=== PATIENT | male | born 1930 | race Caucasian/White ===

== ENCOUNTER 2018-06-18 17:44 | Observation (INO) | payer MEDICARE, OTHER ==
[2018-06-18] MEDS ORDERED: ASPIRIN 81 MG PO STA (18:09)
[2018-06-18] MEDS ORDERED: NITROGLYCERIN OINT 1 INCH/GM PACKET TOPICAL STA (18:09)
[2018-06-18] MEDS ORDERED: NITROGLYCERIN SL TABS 0.4 MG TAB SUBLINGUAL STA (18:09)
--- NOTE | 2018-06-18 18:23 | ED ---
General Adult HPI - General Chief complaint: Chest Pain Stated complaint: chest pain Time Seen by Provider: 06/18/18 17:45 Source: patient, RN notes reviewed Mode of arrival: wheelchair Limitations: no limitations - History of Present Illness Initial comments: This is an 88-year-old male who presents to the emergency department complaining of chest pain which started 3 days ago but he states it's intermittent. Patient states the pain sometimes radiates up into his neck and get quite severe. Patient states there is no associated symptoms. Patient denies any shortness of breath or any diaphoresis or nausea. Patient denies lightheadedness dizziness or near syncopal episode. Patient denies any recent fever chills or cough. Patient denies any abdominal pain patient denies any nausea or vomiting. Patient denies any recent injury or trauma. - Related Data Home Medications Medication Instructions Recorded Confirmed Albuterol Inhaler [Ventolin Hfa 2 puff INHALATION RT-Q6H PRN 06/18/18 06/18/18 Inhaler] Albuterol Nebulized [Ventolin 2.5 mg INHALATION RT-QID PRN 06/18/18 06/18/18 Nebulized] Aspirin EC [Ecotrin Low Dose] 81 mg PO DAILY 06/18/18 06/18/18 Atorvastatin [Lipitor] 20 mg PO HS 06/18/18 06/18/18 Carvedilol [Coreg] 6.25 mg PO BID 06/18/18 06/18/18 Econazole 1% Cream [Spectazole] 1 applic TOPICAL DAILY PRN 06/18/18 06/18/18 Furosemide [Lasix] 40 mg PO DAILY PRN 06/18/18 06/18/18 Glycopyrrolate/Formoterol Fum 2 puff INHALATION RT-BID 06/18/18 06/18/18 [Bevespi Aerosphere Inhaler] Ibuprofen [Motrin Ib] 200 - 400 mg PO Q6H PRN 06/18/18 06/18/18 Lisinopril [Zestril] 2.5 mg PO DAILY 06/18/18 06/18/18 Potassium Chloride ER [K-Dur 20] 20 meq PO DAILY 06/18/18 06/18/18 Rivaroxaban [Xarelto] 20 mg PO DAILY 06/18/18 06/18/18 Allergies Allergy/AdvReac Type Severity Reaction Status Date / Time No Known Allergies Allergy Verified 06/18/18 18:24 Review of Systems ROS Statement: Those systems with pertinent positive or pertinent negative responses have been documented in the HPI. ROS Other: All systems not noted in ROS Statement are negative. Past Medical History Past Medical History: Coronary Artery Disease (CAD), Hyperlipidemia Additional Past Medical History / Comment(s): left leg swelling History of Any Multi-Drug Resistant Organisms: None Reported Past Surgical History: Heart Catheterization Additional Past Surgical History / Comment(s): left leg bypass Past Psychological History: No Psychological Hx Reported Smoking Status: Former smoker Past Alcohol Use History: Rare Past Drug Use History: None Reported General Exam - General Exam Comments Initial Comments: GENERAL: Patient is well-developed and well-nourished. Patient is nontoxic and well- hydrated and is in mild distress. ENT: Neck is soft and supple. No significant lymphadenopathy is noted. Oropharynx is clear. Moist mucous membranes. Neck has full range of motion without eliciting any pain. EYES: The sclera were anicteric and conjunctiva were pink and moist. Extraocular movements were intact and pupils were equal round and reactive to light. Eyelids were unremarkable. PULMONARY: Unlabored respirations. Good breath sounds bilaterally. No audible rales rhonchi or wheezing was noted. CARDIOVASCULAR: There is a regular rate and rhythm without any murmurs gallops or rubs. ABDOMEN: Soft and nontender with normal bowel sounds. No palpable organomegaly was noted. There is no palpable pulsatile mass. SKIN: Skin is clear with no lesions or rashes and otherwise unremarkable. NEUROLOGIC: Patient is alert and oriented x3. Cranial nerves II through XII are grossly intact. Motor and sensory are also intact. Normal speech, volume and content. Symmetrical smile. MUSCULOSKELETAL: Normal extremities with adequate strength and full range of motion. No lower extremity swelling or edema. No calf tenderness. LYMPHATICS: No significant lymphadenopathy is noted PSYCHIATRIC: Normal psychiatric evaluation. Limitations: no limitations Course Vital Signs 06/18/18 06/18/18 06/18/18 17:45 18:14 19:01 Temperature 97.5 F L Pulse Rate 74 74 70 Respiratory 16 16 16 Rate Blood Pressure 162/73 190/90 184/84 O2 Sat by Pulse 99 99 99 Oximetry Medical Decision Making - Medical Decision Making EKG shows sinus rhythm at [address] interval 262 QRS is 152 QT interval 434 QTC is 461. Patient has a left bundle branch block. Chest x-ray shows no acute abnormality. I spoke with Dr. Goldstein agreed to admit the patient admitted the patient wrote admitting orders. I will back into reevaluate the patient and given the results the tests he told me that the nitroglycerin and Nitropaste seem to taken away his pain he hasn't had any pain since that time. - Lab Data Result diagrams: 06/18/18 18:04 06/18/18 18:04 Lab Results 06/18/18 06/18/18 06/18/18 Range/Units 18:04 18:04 18:04 WBC 5.1 (3.8-10.6) k/uL RBC 3.63 L (4.30-5.90) m/uL Hgb 10.5 L (13.0-17.5) gm/dL Hct 33.3 L (39.0-53.0) % MCV 91.8 (80.0-100.0) fL MCH 28.9 (25.0-35.0) pg MCHC 31.5 (31.0-37.0) g/dL RDW 15.2 (11.5-15.5) % Plt Count 185 (150-450) k/uL Neutrophils % 62 % Lymphocytes % 23 % Monocytes % 6 % Eosinophils % 4 % Basophils % 1 % Neutrophils # 3.1 (1.3-7.7) k/uL Lymphocytes # 1.2 (1.0-4.8) k/uL Monocytes # 0.3 (0-1.0) k/uL Eosinophils # 0.2 (0-0.7) k/uL Basophils # 0.0 (0-0.2) k/uL PT 11.0 (9.0-12.0) sec INR 1.0 (<1.2) APTT 22.4 (22.0-30.0) sec Sodium 139 (137-145) mmol/L Potassium 4.6 (3.5-5.1) mmol/L Chloride 109 H (98-107) mmol/L Carbon Dioxide 24 (22-30) mmol/L Anion Gap 6 mmol/L BUN 26 H (9-20) mg/dL Creatinine 1.50 H (0.66-1.25) mg/dL Est GFR (CKD-EPI)AfAm 48 (>60 ml/min/1.73 sqM) Est GFR (CKD-EPI)NonAf 41 (>60 ml/min/1.73 sqM) Glucose 89 (74-99) mg/dL Calcium 9.4 (8.4-10.2) mg/dL Magnesium 2.1 (1.6-2.3) mg/dL Total Bilirubin 0.6 (0.2-1.3) mg/dL AST 25 (17-59) U/L ALT 45 (21-72) U/L Alkaline Phosphatase 52 (38-126) U/L Troponin I (0.000-0.034) ng/mL Total Protein 6.4 (6.3-8.2) g/dL Albumin 3.9 (3.5-5.0) g/dL / Range/Units 18:04 WBC (3.8-10.6) k/uL RBC (4.30-5.90) m/uL Hgb (13.0-17.5) gm/dL Hct (39.0-53.0) % MCV (80.0-100.0) fL MCH (25.0-35.0) pg MCHC (31.0-37.0) g/dL RDW (11.5-15.5) % Plt Count (150-450) k/uL Neutrophils % % Lymphocytes % % Monocytes % % Eosinophils % % Basophils % % Neutrophils # (1.3-7.7) k/uL Lymphocytes # (1.0-4.8) k/uL Monocytes # (0-1.0) k/uL Eosinophils # (0-0.7) k/uL Basophils # (0-0.2) k/uL PT (9.0-12.0) sec INR (<1.2) APTT (22.0-30.0) sec Sodium (137-145) mmol/L Potassium (3.5-5.1) mmol/L Chloride (98-107) mmol/L Carbon Dioxide (22-30) mmol/L Anion Gap mmol/L BUN (9-20) mg/dL Creatinine (0.66-1.25) mg/dL Est GFR (CKD-EPI)AfAm (>60 ml/min/1.73 sqM) Est GFR (CKD-EPI)NonAf (>60 ml/min/1.73 sqM) Glucose (74-99) mg/dL Calcium (8.4-10.2) mg/dL Magnesium (1.6-2.3) mg/dL Total Bilirubin (0.2-1.3) mg/dL AST (17-59) U/L ALT (21-72) U/L Alkaline Phosphatase (38-126) U/L Troponin I 0.019 (0.000-0.034) ng/mL Total Protein (6.3-8.2) g/dL Albumin (3.5-5.0) g/dL Disposition Clinical Impression: Unstable angina pectoris Disposition: ADMITTED IP TO THIS [facility] Time of Disposition: 19:51
[2018-06-18 18:25] LABS: Basophils % (A) 1 %; Eosinophils # (A) 0.2 k/uL (0-0.7); Eosinophils % (A) 4 %; HCT 33.3 % (39.0-53.0); HGB 10.5 gm/dL (13.0-17.5); Lymphocytes # (A) 1.2 k/uL (1.0-4.8); Lymphocytes % (A) 23 %; MCH 28.9 pg (25.0-35.0); MCHC 31.5 g/dL (31.0-37.0); MCV 91.8 fL (80.0-100.0); Mean Platelet Volume 7.3; Monocytes # (A) 0.3 k/uL (0-1.0); Monocytes % (A) 6 %; Neutrophils # (A) 3.1 k/uL (1.3-7.7); Neutrophils % (A) 62 %; Platelet Count 185 k/uL (150-450); RBC 3.63 m/uL (4.30-5.90); RDW 15.2 % (11.5-15.5); WBC 5.1 k/uL (3.8-10.6)
[2018-06-18 18:34] LABS: Albumin 3.9 g/dL (3.5-5.0); Calcium 9.4 mg/dL (8.4-10.2); Magnesium 2.1 mg/dL (1.6-2.3); Potassium 4.6 mmol/L (3.5-5.1); Total Bilirubin 0.6 mg/dL (0.2-1.3); Total Protein 6.4 g/dL (6.3-8.2)
[2018-06-18 18:37] LABS: Partial Thromboplastin Time 22.4 sec (22.0-30.0)
--- NOTE | 2018-06-18 19:46 | XR ---
EXAMINATION TYPE: XR chest 2V DATE OF EXAM: 06/18/2018 COMPARISON: NONE HISTORY: Chest pain TECHNIQUE: Frontal and lateral views of the chest are obtained. FINDINGS: Heart and mediastinum are normal. Lungs are clear. Costophrenic angles are clear. There ar e chest leads. Bony thorax is intact. IMPRESSION: Normal chest
[2018-06-18] MEDS ORDERED: HEPARIN SODIUM,PORCINE 5,000 UNIT/ML 1 ML VIAL IV ONE (19:51)
[2018-06-18] MEDS ORDERED: NITROGLYCERIN SL TABS 0.4 MG TAB SUBLINGUAL PRN (19:51)
[2018-06-18] MEDS ORDERED: HEPARIN SOD,PORK IN 0.45% NACL 25,000 UNIT in 0.45% NACL 1 250ML.BAG IV SCH (20:00)
[2018-06-18] MEDS ORDERED: CLOTRIMAZOLE 1% CREAM 15 GM TUBE TOPICAL PRN (21:23)
[2018-06-18] MEDS ORDERED: ALBUTEROL NEBULIZED 2.5 MG/3 ML INHALATION PRN ×2 (21:23)
[2018-06-18] MEDS ORDERED: FUROSEMIDE 40 MG TAB PO PRN (21:23)
[2018-06-18] MEDS: CARVEDILOL 6.25 MG TAB PO SCH (22:07)
[2018-06-18] MEDS: NITROGLYCERIN OINT 1 INCH/GM PACKET TOPICAL SCH (23:56)
[2018-06-19] MEDS: NITROGLYCERIN OINT 1 INCH/GM PACKET TOPICAL SCH (05:04)
[2018-06-19 07:02] LABS: Cholesterol 119 mg/dL (<200); HDL Cholesterol 60 mg/dL (40-60); LDL Cholesterol,Calculated 44 mg/dL (0-99); Triglycerides 74 mg/dL (<150)
[2018-06-19] MEDS: IPRATROPIUM 0.5 MG/2.5 ML NEBU INHALATION SCH ×4 (07:43→18:20)
[2018-06-19] MEDS: FORMOTEROL FUMARATE 20 MCG/2 ML NEBU INHALATION SCH ×2 (07:43→18:20)
[2018-06-19 08:31] VITALS: RESP 18
[2018-06-19] MEDS ORDERED: RIVAROXABAN 20 MG TAB PO SCH (09:00)
[2018-06-19] MEDS ORDERED: LISINOPRIL 2.5 MG TAB PO SCH (09:00)
[2018-06-19] MEDS ORDERED: ASPIRIN 81 MG PO SCH (09:00)
[2018-06-19] MEDS ORDERED: ASPIRIN 325 MG TAB PO SCH (09:00)
[2018-06-19] MEDS: CARVEDILOL 6.25 MG TAB PO SCH (12:29)
--- NOTE | 2018-06-19 13:11 | ECHOF ---
Referral Reason:cp MEASUREMENTS -------- HEIGHT: 180.3 cm WEIGHT: 80.7 kg BP: 188/73 RVIDd: 3.4 cm (< 3.3) IVSd: 1.4 cm (0.6 - 1.1) LVIDd: 4.0 cm (3.9 - 5.3) LVPWd: 1.4 cm (0.6 - 1.1) IVSs: 1.9 cm LVIDs: 2.9 cm LVPWs: 1.8 cm LA Diam: 3.9 cm (2.7 - 3.8) LAESV Index (A-L): 29.14 ml/m Ao Diam: 2.9 cm (2.0 - 3.7) AV Cusp: 2.2 cm (1.5 - 2.6) MV EXCURSION: 15.293 mm (> 18.000) MV EF SLOPE: 129 mm/s (70 - 150) EPSS: 0.6 cm MV E Flo: 1.10 m/s MV DecT: 110 ms MV A Flo: 0.57 m/s MV E/A Ratio: 1.91 AR PHT: 532 ms RAP: 5.00 mmHg RVSP: 34.51 mmHg FINDINGS -------- Sinus rhythm. This was a technically good study. The left ventricular size is normal. There is moderate concentric left ventricular hypertrophy. O verall left ventricular systolic function is normal with, an EF between 55 - 60 %. The right ventricle is mildly enlarged. LA is midly dilated 29-33ml/m2. The right atrium is normal in size. There is mild aortic valve sclerosis. There is mild aortic regurgitation. Mild mitral regurgitation is present. Mild tricuspid regurgitation present. There is mild pulmonary hypertension. The right ventricular systolic pressure, as measured by Doppler, is 34.51mmHg. Trace/mild (physiologic) pulmonic regurgitation. The aortic root size is normal. Normal inferior vena cava with normal inspiratory collapse consistent with estimated right atrial pre ssure of 5 mmHg. There is no pericardial effusion. CONCLUSIONS -------- 1. Sinus rhythm. 2. This was a technically good study. 3. The left ventricular size is normal. 4. There is moderate concentric left ventricular hypertrophy. 5. Overall left ventricular systolic function is normal with, an EF between 55 - 60 %. 6. The right ventricle is mildly enlarged. 7. LA is midly dilated 29-33ml/m2. 8. The right atrium is normal in size. 9. There is mild aortic valve sclerosis. 10. There is mild aortic regurgitation. 11. Mild mitral regurgitation is present. 12. Mild tricuspid regurgitation present. 13. There is mild pulmonary hypertension. 14. The right ventricular systolic pressure, as measured by Doppler, is 34.51mmHg. 15. Trace/mild (physiologic) pulmonic regurgitation. 16. The aortic root size is normal. 17. Normal inferior vena cava with normal inspiratory collapse consistent with estimated right atrial pressure of 5 mmHg. 18. There is no pericardial effusion. [employer]: Carmen Joe RDCS
--- NOTE | 2018-06-19 14:31 | P.CRDCN ---
History of Present Illness History of present illness: This is a pleasant 88-year-old male past medical history significant for dyslipidemia, coronary artery disease, peripheral vascular disease, hypertension, paroxysmal atrial fibrillation on long-term anticoagulation and COPD. He states he was a long-time smoker but quit approximately 15 years ago however recently restarted smoking and again has quit 2 months ago. He follows with Dr. Ramirez for cardiology out of [facility]. We have been asked to see him in consultation for chest pain. He states approximately one week ago while he was in the shower he turns too quickly and felt a pull in his left side in his rib torso region and immediately had significant cramping on that side of his body. Since that time he has had a vague discomfort at the base of his neck. This discomfort is worse with movement of his torso or neck and is relieved with intense pressure-like pressing on the area with his hand or applying heat pack to the area. He denies any radiation through to the chest. He denies associated shortness of breath, dizziness, nausea, vomiting or diaphor esis. He states he underwent coronary artery balloon angioplasty 2 years ago at [facility]. Otherwise he denies any history of stent placement or bypass surgery. EKG reveals left bundle branch block with first-degree AV block. There is no old for comparison. Chest x-ray is negative for an acute cardiopulmonary process. Laboratory data reviewed, WBC 5.1, 1110.5, platelets 185, sodium 139, potassium 4.6, creatinine 1.5, magnesium 2.1, cardiac enzymes negative 3, LDL 44 and HDL 60. Current cardiac medications include aspirin 81 mg daily, atorvastatin 20 mg daily, carvedilol 6.25 mg twice a day, Lasix 40 mg daily as needed, lisinopril 20 mg daily and Xarelto 20 mg daily. At the time of my exam: CONSTITUTIONAL: Denies fever. Denies chills. EYES: Denies blurred vision. Denies vision changes. Denies eye pain. EARS, NOSE, MOUTH & THROAT: Denies headache. Denies sore throat. Denies ear pain. CARDIOVASCULAR: Denies chest pain. Denies shortness of breath. Denies orthopnea. Denies PND. Denies palpitations. RESPIRATORY: Denies cough. GASTROINTESTINAL: Denies abdominal pain. Denies diarrhea. Denies constipation. Denies nausea. Denies vomiting. MUSCULOSKELETAL: Complains of intermittent discomfort at the base of his neck posteriorly. INTEGUMENTARY: Denies pruitis. Denies rash. NEUROLOGIC: Denies numbness. Denies tingling. Denies weakness. PSYCHIATRIC: Denies anxiety. Denies depression. ENDOCRINE: Denies fatigue. Denies weight change. Denies polydipsia. Denies polyurina. GENITOURINARY: Denies burning, hematuria or urgency with micturation. HEMATOLOGIC: Denies history of anemia. Denies bleeding. Blood pressure 182/72 heart rate 74 afebrile maintaining oxygen saturation on room air GENERAL: This is a 88-year-old male in no apparent distress at the time of my examination. HEENT: Head is atraumatic, normocephalic. Pupils are equal, round. Sclerae anicteric. Conjunctivae are clear. Mucous membranes of the mouth are moist. Neck is supple. There is no jugular venous distention. No carotid bruit is heard. LUNGS: Clear to auscultation no wheezes, rales or rhonchi. No chest wall tenderness is noted on palpation or with deep breathing. HEART: Regular rate and rhythm with systolic ejection murmur at the left sternal border, no rubs or gallops. S1 and S2 heard. Distant heart sounds. ABDOMEN: Soft, nontender. Bowel sounds are heard. No organomegaly noted. EXTREMITIES: No evidence of peripheral edema and no calf tenderness noted. VASCULAR: Radial and dorsalis pedis pulses palpated, no evidence of clubbing. NEUROLOGIC: Patient is awake, alert and oriented x3. ASSESSMENT Musculoskeletal neck strain History of coronary artery disease status post balloon angioplasty in 2017 exact details unavailable. Hypertension Dyslipidemia Peripheral vascular disease Paroxysmal atrial fibrillation on long-term anticoagulation COPD PLAN An acute coronary event has been ruled out. Obtain 2-D echocardiogram and Doppler study to assess cardiac structure and function. Recommend anti-inflammatory pain relief as needed. 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 Thank you kindly for this consultation. Nurse Practitioner note has been reviewed, I agree with a documented findings and plan of care. Patient was seen and examined. Past Medical History Past Medical History: Coronary Artery Disease (CAD), Hyperlipidemia Additional Past Medical History / Comment(s): left leg swelling History of Any Multi-Drug Resistant Organisms: None Reported Past Surgical History: Heart Catheterization, Hernia Repair Additional Past Surgical History / Comment(s): left leg bypass, right and left hernia Past Anesthesia/Blood Transfusion Reactions: No Reported Reaction Smoking Status: Former smoker Medications and Allergies Home Medications Medication Instructions Recorded Confirmed Type Albuterol Inhaler [Ventolin Hfa 2 puff INHALATION RT-Q6H PRN 06/18/18 06/18/18 History Inhaler] Albuterol Nebulized [Ventolin 2.5 mg INHALATION RT-QID PRN 06/18/18 06/18/18 History Nebulized] Aspirin EC [Ecotrin Low Dose] 81 mg PO DAILY 06/18/18 06/18/18 History Atorvastatin [Lipitor] 20 mg PO HS 06/18/18 06/18/18 History Carvedilol [Coreg] 6.25 mg PO BID 06/18/18 06/18/18 History Econazole 1% Cream [Spectazole] 1 applic TOPICAL DAILY PRN 06/18/18 06/18/18 History Furosemide [Lasix] 40 mg PO DAILY PRN 06/18/18 06/18/18 History Glycopyrrolate/Formoterol Fum 2 puff INHALATION RT-BID 06/18/18 06/18/18 History [Bevespi Aerosphere Inhaler] Ibuprofen [Motrin Ib] 200 - 400 mg PO Q6H PRN 06/18/18 06/18/18 History Lisinopril [Zestril] 2.5 mg PO DAILY 06/18/18 06/18/18 History Potassium Chloride ER [K-Dur 20] 20 meq PO DAILY 06/18/18 06/18/18 History Rivaroxaban [Xarelto] 20 mg PO DAILY 06/18/18 06/18/18 History Allergies Allergy/AdvReac Type Severity Reaction Status Date / Time No Known Allergies Allergy Verified 06/18/18 21:22 Physical Exam Vitals: Vital Signs Temp Pulse Pulse Resp BP BP Pulse Ox 06/19/18 07:52 72 06/19/18 07:51 72 06/19/18 07:44 72 06/19/18 03:53 97.8 F 74 16 179/79 96 06/19/18 03:51 16 06/18/18 23:38 98.2 F 63 16 160/68 94 L 06/18/18 23:26 16 06/18/18 21:27 97.7 F 79 16 177/66 98 06/18/18 20:30 71 16 197/91 99 06/18/18 20:00 71 22 194/89 98 06/18/18 19:30 50 L 13 191/86 100 06/18/18 19:01 70 16 184/84 99 06/18/18 18:14 74 16 190/90 99 06/18/18 17:45 97.5 F L 74 16 162/73 99 Intake and Output 06/18/18 06/19/18 06/19/18 22:59 06:59 14:59 Other: # Voids 1 Weight 80.739 kg Results 06/18/18 18:04 06/18/18 18:04 Cardiac Enzymes 06/18/18 06/18/18 06/18/18 Range/Units 18:04 18:04 23:54 AST 25 (17-59) U/L Troponin I 0.019 0.020 (0.000-0.034) ng/mL 06/19/18 Range/Units 05:44 AST (17-59) U/L Troponin I 0.019 (0.000-0.034) ng/mL Coagulation 06/18/18 Range/Units 18:04 PT 11.0 (9.0-12.0) sec APTT 22.4 (22.0-30.0) sec Lipids 06/19/18 Range/Units 05:44 Triglycerides 74 (<150) mg/dL Cholesterol 119 (<200) mg/dL HDL Cholesterol 60 (40-60) mg/dL CBC 06/18/18 Range/Units 18:04 WBC 5.1 (3.8-10.6) k/uL RBC 3.63 L (4.30-5.90) m/uL Hgb 10.5 L (13.0-17.5) gm/dL Hct 33.3 L (39.0-53.0) % Plt Count 185 (150-450) k/uL Comprehensive Metabolic Panel 06/18/18 Range/Units 18:04 Sodium 139 (137-145) mmol/L Potassium 4.6 (3.5-5.1) mmol/L Chloride 109 H (98-107) mmol/L Carbon Dioxide 24 (22-30) mmol/L BUN 26 H (9-20) mg/dL Creatinine 1.50 H (0.66-1.25) mg/dL Glucose 89 (74-99) mg/dL Calcium 9.4 (8.4-10.2) mg/dL AST 25 (17-59) U/L ALT 45 (21-72) U/L Alkaline Phosphatase 52 (38-126) U/L Total Protein 6.4 (6.3-8.2) g/dL Albumin 3.9 (3.5-5.0) g/dL Current Medications Generic Name Dose Route Start Last Admin Trade Name Freq PRN Reason Stop Dose Admin Albuterol Sulfate 2.5 mg 06/18/18 21:23 Ventolin Nebulized INHALATION RT-QID PRN Shortness Of Breath Aspirin 81 mg 06/19/18 09:00 Aspirin PO DAILY [facility] Atorvastatin Calcium 20 mg 06/19/18 21:00 Lipitor PO HS [facility] Carvedilol 6.25 mg 06/18/18 21:30 06/18/18 22:07 Coreg PO 6.25 mg AC-BID [facility] Administration Clotrimazole 1 applic 06/18/18 21:23 Lotrimin Cream TOPICAL DAILY PRN Skin Irritation Formoterol Fumarate 20 mcg 06/19/18 08:00 06/19/18 07:43 Perforomist INHALATION 20 mcg RT-BID [facility] Administration Furosemide 40 mg 06/18/18 21:23 Lasix PO DAILY PRN Edema Ipratropium [place] 0.5 mg 06/19/18 08:00 06/19/18 07:43 Atrovent Nebulized INHALATION 0.5 mg RT-QID [facility] Administration Lisinopril 2.5 mg 06/19/18 09:00 Zestril PO DAILY [facility] Nitroglycerin 1 inch 06/19/18 00:00 06/19/18 05:04 Nitro-Bid Oint TOPICAL Not Given Q6HR [facility] Nitroglycerin 0.4 mg 06/18/18 19:51 Nitrostat SUBLINGUAL Q5M PRN Chest Pain Rivaroxaban 20 mg 06/19/18 09:00 Xarelto PO DAILY [facility] Intake and Output 06/18/18 06/19/18 06/19/18 22:59 06:59 14:59 Other: # Voids 1 Weight 80.739 kg 06/18/18 18:04 06/18/18 18:04
[2018-06-19 16:08] VITALS: BP 173/73; PULSE 59; TEMP 97.7
--- NOTE | 2018-06-19 16:27 | XR ---
EXAMINATION TYPE: XR cervical spine comp DATE OF EXAM: 06/19/2018 CLINICAL HISTORY: pain COMPARISON: NONE TECHNIQUE: Frontal, lateral, oblique, swimmers, and open mouth view of the cervical spine are obtaine d. FINDINGS: The cervical spine is visualized in its entirety from C1 thru the top of T1 level. It is s atisfactory in alignment without evidence of acute fracture or dislocation. The pre-vertebral soft t issue appears within normal limits. Severe multilevel degenerative disc space narrowing and spondylos is from C3-4 through C6-7. The C1-C2 articulation is unremarkable on the open mouth view. C5-6 and C6 -7 foraminal encroachment bilaterally. IMPRESSION: No acute fracture or dislocation is seen in the cervical spine.ICD 10 NO FRACTURE, INITI AL EVALUATION
--- NOTE | 2018-06-19 16:28 | XR ---
EXAMINATION TYPE: XR thoracic spine 2V DATE OF EXAM: 06/19/2018 CLINICAL HISTORY: pain TECHNIQUE: Frontal, lateral, and swimmer's view of thoracic spine are obtained. COMPARISON: None. FINDINGS: Thoracic spine show satisfactory alignment without evidence of acute fracture or dislocatio n. Vertebral body heights are preserved. Mild degenerative disc space narrowing is noted. Visualiz ed ribs are unremarkable. IMPRESSION: No acute fracture or dislocation is seen in the thoracic spine. ICD 10 NO FRACTURE, INIT IAL EVALUATION
[2018-06-19] MEDS ORDERED: predniSONE 20 MG TAB PO STA (17:17)
--- NOTE | 2018-06-19 20:21 | DS ---
DISCHARGE SUMMARY HISTORY AND PHYSICAL AND DISCHARGE SUMMARY: DATE OF ADMISSION: 06/18/2018 DATE OF DISCHARGE: 06/19/2018 PRESENTING COMPLAINT: Acute neck pain. HISTORY OF PRESENTING COMPLAINT: This is a very pleasant 88-year-old patient who follows with Dr. Nayak out of [place]. Chronic stable medical conditions include coronary artery disease with angioplasty done by Dr. Ramirez out of [facility], hyperlipidemia, peripheral artery disease and osteoarthritis. The patient had a nuclear stress test close to a year ago. The patient for the last 3 days up to about 4 times a day was getting shooting severe pain in the upper part of the chest posteriorly just below the neckline. The pain was severe and shooting and sometimes radiating to the side. At one time at least he was able to move his arm around and get some comfort. He also noticed some fluttering sensation in the chest in one of these episodes and decided to come in to rule out a cardiac cause. Otherwise, the pain was localized to the back. There was no shortness of breath, no dizziness, no lightheadedness, not related to activity. He noted that it happened when he was sitting in a chair, going to move forward with his neck when he got this pain. But he was admitted through the ER to make sure there was no cardiac component to this presentation. REVIEW OF SYSTEMS: CONSTITUTIONAL: None. HEENT: None. RESPIRATORY: None. CARDIOVASCULAR: As above. GASTROINTESTINAL: None. GENITOURINARY: None. MUSCULOSKELETAL: Arthritic pain in different joints. DERMATOLOGICAL: None. HEMATOLOGIC: None. LYMPHATICS: None. PSYCHIATRY none. NEUROLOGICAL: None. MUSCULOSKELETAL: As above. PAST MEDICAL HISTORY: 1. Coronary artery disease with angioplasty. 2. Hyperlipidemia. 3. Peripheral artery disease. 4. Osteoarthritis. PAST SURGICAL HISTORY: 1. Cardiac catheterization with angioplasty. 2. Hernia repair. 3. Left leg bypass. 4. Right and left hernia. SOCIAL HISTORY: Patient did smoke in the past. Alcohol rarely. Retired. FAMILY HISTORY: Reviewed; noncontributory to presentation. HOME MEDICATIONS: 1. Ventolin 2.5 q.i.d. p.r.n. 2. Xarelto 20 mg daily. 3. Potassium 20 mEq a day. 4. Zestril 2.5 p.o. daily. 5. Motrin 200 to 400 mg q.6 p.r.n. 6. Bevespi Aerosphere 2 puffs b.i.d. 7. Lasix 40 mg p.r.n. 8. Spectazole 1 application topically daily p.r.n. 9. Coreg 6.25 b.i.d. 10.Lipitor 20 mg at bedtime. 11.Aspirin 81 mg p.o. daily. 12.Ventolin HFA 2 puffs q.6 p.r.n. ALLERGIES: NONE. PHYSICAL EXAMINATION: VITAL SIGNS ON PRESENTATION: Temperature 97.5, pulse 74, respiration 16, blood pressure 162/73, pulse ox 99% on room air. GENERAL APPEARANCE: Average build. Sitting up, not in distress. EYES: Pupils equal. Conjunctivae normal. HEENT: External appearance of nose and ears normal. Oral cavity normal. Decreased hearing. NECK: JVD not raised. Mass not palpable. RESPIRATORY: Effort normal. LUNGS: Slightly decreased breath sounds. CARDIOVASCULAR: First and second sounds normal. No edema. ABDOMEN: Soft, non-tender. Liver and spleen not palpable. LYMPHATIC: No lymph node palpable in neck or axillae. PSYCHIATRY: Alert and oriented x3. Mood and affect normal. MUSCULOSKELETAL: Evidence of osteoarthritis, especially in the hands. INVESTIGATIONS: White count 5.1, hemoglobin 10.5, platelets 185. Potassium 4.6, BUN 26, creatinine 1.50. Troponin 0.019, 0.020, 0.019. LDL 44. Patient's creatinine back in 2013 was 1.29. EKG tracing, personally reviewed by me, shows left bundle branch block pattern. Chest x-ray film, personally reviewed by me, shows borderline cardiomegaly, no obvious infiltrate. Cervical spine and thoracic spine show multiple levels of severe DJD and same with upper thoracic spine with narrowing of the intervertebral disc space. Two-D echocardiogram shows EF of 55% to 60%, no wall motion abnormality, moderate concentric left ventricular hypertrophy. ASSESSMENT: 1. Acute severe pain in the upper part of the back with radiation; seems to be more positional and sometimes better with movement of the arm, likely acute radicular pain from narrowing of the intervertebral disc space, especially in the upper thoracic spine. I do not feel this is related to any cardiac event. 2. Coronary artery disease with prior history of angioplasty. 3. Hyperlipidemia. 4. Peripheral artery disease. 5. Primary osteoarthritis. 6. Chronic obstructive pulmonary disease in an ex-smoker. PLAN: Cardiology was consulted for their opinion. Cannot give patient NSAIDs because of renal failure and can only give a burst of steroids. The patient may benefit from local steroid injection. Will have patient see Orthopedics for the same. Will discontinue patient's home dose of Lasix and GINETTE inhibitor for now. Have repeat labs checked. Also will have the patient follow up with Nephrology as an outpatient. Care was discussed with the patient and son at the bedside. Questions were answered. Will also add amlodipine for better blood pressure control. DISCHARGE MEDICATIONS: 1. Ventolin HFA 2 puffs q.6 p.r.n. 2. Ventolin nebulizer 2.5 q.i.d. p.r.n. 3. Aspirin 81 mg a day. 4. Lipitor 20 mg p.o. at bedtime. 5. Coreg 6.25 p.o. b.i.d. 6. Spectazole topically daily p.r.n. 7. Bevespi Aerosphere 2 puffs b.i.d. 8. Xarelto 20 mg p.o. daily. 9. Norvasc 10 mg p.o. daily; NEW MEDICATION. 10.Prednisone taper; NEW MEDICATION. DISCONTINUED MEDICATIONS include potassium, Zestril, Motrin, Lasix. Follow-up labs BMP in 7 days. Follow up with Dr. Brennen Nayak in [place] in one week. Follow up with Dr. Abdiel Pearson from [facility] for a possible epidural injection in one week. Follow up with Dr. Langley for chronic kidney disease assessment in one week. MMODL / IJN: [id number] /
[2018-06-19] MEDS ORDERED: ATORVASTATIN 20 MG TAB PO SCH (21:00)
== END 2018-06-19 18:30 | disposition home or self-care (01) ==
LOC: EC 17:44 → 1SOBS 19:52
PROVIDERS: ADMIT Hospitalist; ATTEND Hospitalist
DX: R07.89 Other chest pain (principal); M48.04 Spinal stenosis, thoracic region; M47.812 Spondylosis without myelopathy or radiculopathy, cervical region; M47.814 Spondylosis without myelopathy or radiculopathy, thoracic region; I25.10 Atherosclerotic heart disease of native coronary artery without angina pectoris; E78.5 Hyperlipidemia, unspecified; I11.9 Hypertensive heart disease without heart failure; I44.7 Left bundle-branch block, unspecified; J44.9 Chronic obstructive pulmonary disease, unspecified; I73.9 Peripheral vascular disease, unspecified; I48.0 Paroxysmal atrial fibrillation; I44.0 Atrioventricular block, first degree; M19.042 Primary osteoarthritis, left hand; M19.041 Primary osteoarthritis, right hand; Z79.82 Long term (current) use of aspirin; Z79.01 Long term (current) use of anticoagulants; Z79.899 Other long term (current) drug therapy; Z87.891 Personal history of nicotine dependence; Z98.61 Coronary angioplasty status
CPT/HCPCS: 99285; 36415; 94640 ×2; 93005; 93306; 80061; 80053; 83735; 84484 ×2; 85025; 85610; 85730; 72070; 72050; 71046; G0378 ×2; J7512

== ENCOUNTER 2018-12-02 08:34 | Inpatient (IN) | payer MEDICARE, OTHER ==
[2018-12-02] MEDS ORDERED: SODIUM CHLORIDE 0.9% 500 ML 500 ML IV STA (08:44)
--- NOTE | 2018-12-02 08:45 | ED ---
Recheck HPI - General Chief Complaint: Recheck/Abnormal Lab/Rx Stated Complaint: low hemoglobin Time Seen by Provider: 12/02/18 08:42 Source: patient Mode of arrival: wheelchair Limitations: no limitations - History of Present Illness Initial Comments: 88-year-old male with history of "abnormal heart rate" coronary artery disease, hyperlipidemia presenting today for chief complaint of sent in by primary care provider for low hemoglobin. Patient states he has felt weak for the past 3 months, and at times is winded with ambulation. Patient has no other complaints. Patient denies CP. Patient states he has had a dark stool yesterday. Denies leanna bloody stools. Patient is on xarelto. Upon arrival patient's blood pressure is elevated. He appears well no leanna shortness of breath. Patient has no other complaints. Upon arrival patient is hemodynamically stable. - Related Data Home Medications Medication Instructions Recorded Confirmed Aspirin EC [Ecotrin Low Dose] 81 mg PO DAILY 06/18/18 12/02/18 Atorvastatin [Lipitor] 20 mg PO HS 06/18/18 12/02/18 Carvedilol [Coreg] 6.25 mg PO BID 06/18/18 12/02/18 Glycopyrrolate/Formoterol Fum 2 puff INHALATION RT-BID 06/18/18 12/02/18 [Bevespi Aerosphere Inhaler] Rivaroxaban [Xarelto] 20 mg PO DAILY 06/18/18 12/02/18 Furosemide [Lasix] 40 mg PO DAILY 12/02/18 12/02/18 Lisinopril [Zestril] 2.5 mg PO DAILY 12/02/18 12/02/18 Potassium Chloride ER [K-Dur 20] 20 meq PO DAILY 12/02/18 12/02/18 Allergies Allergy/AdvReac Type Severity Reaction Status Date / Time No Known Allergies Allergy Verified 12/02/18 08:49 Review of Systems ROS Statement: Those systems with pertinent positive or pertinent negative responses have been documented in the HPI. ROS Other: All systems not noted in ROS Statement are negative. Past Medical History Past Medical History: Coronary Artery Disease (CAD), Hyperlipidemia Additional Past Medical History / Comment(s): left leg swelling History of Any Multi-Drug Resistant Organisms: None Reported Past Surgical History: Heart Catheterization, Hernia Repair Additional Past Surgical History / Comment(s): left leg bypass, right and left hernia, skin CA removal on RT face/neck Past Anesthesia/Blood Transfusion Reactions: No Reported Reaction Past Psychological History: No Psychological Hx Reported Smoking Status: Former smoker Past Alcohol Use History: None Reported Past Drug Use History: None Reported - Past Family History Mother Family Medical History: No Reported History Additional Family Medical History / Comment(s): Mother at the age of 78yrs. She did not have access to health care much. Father Family Medical History: No Reported History Additional Family Medical History / Comment(s): Father at the age of 86yrs. He did not have much access to health care. General Exam - General Exam Comments Initial Comments: General: The patient is awake and alert, in no distress, and does not appear acutely ill. Eye: +3 mm pupils are equal, round and reactive to light, extra-ocular movements are intact. No nystagmus. There is normal conjunctiva bilaterally. No signs of icterus. Ears, nose, mouth and throat: There are moist pale mucous membranes and no oral lesions. Neck: The neck is supple, there is no tenderness or JVD. Cardiovascular: There is a regular rate and rhythm. No murmur, rub or gallop is appreciated. Respiratory: Lungs are clear to auscultation, respirations are non-labored, breath sounds are equal. No wheezes, stridor, rales, or rhonchi. Gastrointestinal: Soft, non-distended, non-tender abdomen without masses or organomegaly noted. There is no rebound or guarding present. Bowel sounds are unremarkable. Dark brown blood on finger after rectal exam, normal tone. Musculoskeletal: Normal ROM, no tenderness. Strength 5/5. Sensation intact. Pulses equal bilaterally 2+. Neurological: A&O x 3. CN II-XII intact, There are no obvious motor or sensory deficits. Coordination appears grossly intact. Speech is normal. Skin: Skin is warm and dry and no rashes or lesions are noted. Psychiatric: Cooperative, appropriate mood & affect, normal judgment. Limitations: no limitations Course Vital Signs 12/02/18 12/02/18 12/02/18 08:36 11:53 12:08 Temperature 97.6 F 97.6 F 97.8 F Pulse Rate 64 66 52 L Respiratory 18 18 16 Rate Blood Pressure 191/63 164/69 180/59 O2 Sat by Pulse 99 96 97 Oximetry 12/02/18 12/02/18 12/02/18 12:18 12:48 13:16 Temperature 98.2 F 97.6 F 98.1 F Pulse Rate 64 79 57 L Respiratory 18 18 18 Rate Blood Pressure 167/55 177/63 185/61 O2 Sat by Pulse 95 98 98 Oximetry 12/02/18 12/02/18 13:54 14:34 Temperature 97.8 F 97.6 F Pulse Rate 60 82 Respiratory 18 18 Rate Blood Pressure 189/91 174/89 O2 Sat by Pulse 98 Oximetry Medical Decision Making - Medical Decision Making 8-year-old male on anticoagulation therapy presenting for low hemoglobin. Patient states he has had fatigue for the past month and with exertion he has some shortness of breath. Patient denies shortness of breath at rest or SOB. HgB <7. Will transfuse. Occult + concern for GI bleed with hx of oen dark stool yesterday. Patient continues to appear well, will admit patient for GI evaluation. Patient agreeable given 1 unit in ER ordered serial CBCs. - Lab Data Result diagrams: 12/02/18 08:48 12/02/18 08:48 Lab Results 12/02/18 12/02/18 12/02/18 Range/Units 08:45 08:48 08:48 WBC 7.0 (3.8-10.6) k/uL RBC 2.97 L (4.30-5.90) m/uL Hgb 6.8 L* (13.0-17.5) gm/dL Hct 23.1 L (39.0-53.0) % MCV 77.5 L (80.0-100.0) fL MCH 23.0 L (25.0-35.0) pg MCHC 29.6 L (31.0-37.0) g/dL RDW 17.7 H (11.5-15.5) % Plt Count 314 (150-450) k/uL Neutrophils % 59 % Lymphocytes % 23 % Monocytes % 6 % Eosinophils % 7 % Basophils % 1 % Neutrophils # 4.2 (1.3-7.7) k/uL Lymphocytes # 1.7 (1.0-4.8) k/uL Monocytes # 0.4 (0-1.0) k/uL Eosinophils # 0.5 (0-0.7) k/uL Basophils # 0.1 (0-0.2) k/uL Hypochromasia Marked Poikilocytosis Slight Anisocytosis Slight Microcytosis Slight PT (9.0-12.0) sec INR (<1.2) APTT (22.0-30.0) sec Sodium 140 (137-145) mmol/L Potassium 4.3 (3.5-5.1) mmol/L Chloride 109 H (98-107) mmol/L Carbon Dioxide 22 (22-30) mmol/L Anion Gap 9 mmol/L BUN 36 H (9-20) mg/dL Creatinine 1.67 H (0.66-1.25) mg/dL Est GFR (CKD-EPI)AfAm 42 (>60 ml/min/1.73 sqM) Est GFR (CKD-EPI)NonAf 36 (>60 ml/min/1.73 sqM) Glucose 101 H (74-99) mg/dL Calcium 9.0 (8.4-10.2) mg/dL Total Bilirubin 0.5 (0.2-1.3) mg/dL AST 22 (17-59) U/L ALT 28 (21-72) U/L Alkaline Phosphatase 48 (38-126) U/L Total Protein 6.0 L (6.3-8.2) g/dL Albumin 3.6 (3.5-5.0) g/dL Stool Occult Blood (Negative) Blood Type O Negative Blood Type Confirm Blood Type Recheck No Previous Record Bld Type Recheck Status CABO Indicated Antibody Screen NEGATIVE Crossmatch See Detail Spec Expiration Date 12/05/2018 - 234712/02/18 12/02/18 12/02/18 Range/Units 08:48 08:48 08:48 WBC (3.8-10.6) k/uL RBC (4.30-5.90) m/uL Hgb (13.0-17.5) gm/dL Hct (39.0-53.0) % MCV (80.0-100.0) fL MCH (25.0-35.0) pg MCHC (31.0-37.0) g/dL RDW (11.5-15.5) % Plt Count (150-450) k/uL Neutrophils % % Lymphocytes % % Monocytes % % Eosinophils % % Basophils % % Neutrophils # (1.3-7.7) k/uL Lymphocytes # (1.0-4.8) k/uL Monocytes # (0-1.0) k/uL Eosinophils # (0-0.7) k/uL Basophils # (0-0.2) k/uL Hypochromasia Poikilocytosis Anisocytosis Microcytosis PT 11.1 (9.0-12.0) sec INR 1.0 (<1.2) APTT 25.7 (22.0-30.0) sec Sodium (137-145) mmol/L Potassium (3.5-5.1) mmol/L Chloride (98-107) mmol/L Carbon Dioxide (22-30) mmol/L Anion Gap mmol/L BUN (9-20) mg/dL Creatinine (0.66-1.25) mg/dL Est GFR (CKD-EPI)AfAm (>60 ml/min/1.73 sqM) Est GFR (CKD-EPI)NonAf (>60 ml/min/1.73 sqM) Glucose (74-99) mg/dL Calcium (8.4-10.2) mg/dL Total Bilirubin (0.2-1.3) mg/dL AST (17-59) U/L ALT (21-72) U/L Alkaline Phosphatase (38-126) U/L Total Protein (6.3-8.2) g/dL Albumin (3.5-5.0) g/dL Stool Occult Blood Positive (Negative) Blood Type Blood Type Confirm O Negative Blood Type Recheck Bld Type Recheck Status Antibody Screen Crossmatch Spec Expiration Date Disposition Clinical Impression: GI bleed, Symptomatic anemia, Fatigue Disposition: ADMITTED IP TO THIS [facility] Condition: Stable Is patient prescribed a controlled substance at d/c from ED?: No Time of Disposition: 10:19 Decision to Admit Reason: Admit from EC Decision Date: 12/02/18 Decision Time: 10:19
[2018-12-02 09:21] LABS: Anisocytosis Slight; Basophils # (A) 0.1 k/uL (0-0.2); Basophils % (A) 1 %; Eosinophils # (A) 0.5 k/uL (0-0.7); Eosinophils % (A) 7 %; HCT 23.1 % (39.0-53.0); Hypochromasia Marked; Lymphocytes # (A) 1.7 k/uL (1.0-4.8); Lymphocytes % (A) 23 %; MCHC 29.6 g/dL (31.0-37.0); MCV 77.5 fL (80.0-100.0); Mean Platelet Volume 6.9; Microcytosis Slight; Monocytes # (A) 0.4 k/uL (0-1.0); Monocytes % (A) 6 %; Neutrophils # (A) 4.2 k/uL (1.3-7.7); Neutrophils % (A) 59 %; Platelet Count 314 k/uL (150-450); Poikilocytosis Slight; RBC 2.97 m/uL (4.30-5.90); RDW 17.7 % (11.5-15.5)
[2018-12-02 09:29] LABS: HGB 6.8 gm/dL (13.0-17.5); Partial Thromboplastin Time 25.7 sec (22.0-30.0); Prothrombin Time 11.1 sec (9.0-12.0)
[2018-12-02 09:32] LABS: Albumin 3.6 g/dL (3.5-5.0); Potassium 4.3 mmol/L (3.5-5.1); Total Bilirubin 0.5 mg/dL (0.2-1.3)
[2018-12-02] MEDS ORDERED: NALOXONE 0.4 MG/ML 1 ML VIAL IV PRN (10:17)
[2018-12-02] MEDS ORDERED: PANTOPRAZOLE 40 MG/10 ML VIAL IVP STA (10:18)
[2018-12-02] MEDS: SODIUM CHLORIDE 0.9% 1,000 ML IV SCH (11:21)
[2018-12-02] MEDS ORDERED: LISINOPRIL 2.5 MG TAB PO STA (13:59)
[2018-12-02] MEDS: CARVEDILOL 6.25 MG TAB PO SCH (17:39)
[2018-12-02] MEDS: POTASSIUM CHLORIDE ER 20 MEQ TAB.ER PO SCH (17:39)
[2018-12-02] MEDS: FUROSEMIDE 40 MG TAB PO SCH (17:39)
--- NOTE | 2018-12-02 19:01 | CONS ---
CONSULTATION DATE OF DICTATION: 12/02/2018. REASON FOR CONSULTATION: Dark-colored stools and anemia. HISTORY OF PRESENT ILLNESS: The patient is an 88-year-old pleasant white male with history of hypertension, hyperlipidemia and coronary artery disease. He came into the emergency room because of severe anemia. He was feeling weak and tired for the last 3 months and went to see Dr. Nayak, had labs done and was told he had severe anemia and was advised to go to the emergency room. Repeat CBC in the ER showed a hemoglobin of 6.8 g/dL and Hemoccult- positive stool. He was given one unit of blood transfusion and presently admitted to the hospital for further evaluation. The patient noticed dark-colored stools since yesterday. In fact, he had some black tarry stools x1 yesterday. Today it was more dark in color. He denies any abdominal pain, reports no nausea or vomiting. Never had these symptoms in the past. He has been on Xarelto for atrial fibrillation for several years' duration. No prior history of peptic ulcer disease. He occasionally takes Motrin at night. PAST MEDICAL HISTORY: Past medical history is significant for: 1. Hypertension. 2. Hyperlipidemia. 3. Coronary artery disease. 4. Atrial fibrillation, on Xarelto. PAST SURGICAL HISTORY: 1. Hernia repair. 2. Cardiac catheterization. 3. Left leg bypass surgery. MEDICATIONS: Medications at home include: 1. K-Dur. 2. Zestril. 3. Xarelto. 4. Coreg. 5. Lipitor. 6. Lasix. 7. Aspirin. SOCIAL HISTORY: No smoking. No alcohol use. FAMILY HISTORY: Unremarkable. ALLERGIES: NONE. REVIEW OF SYSTEMS: CARDIOPULMONARY: No chest pain or shortness of breath. GENITOURINARY: No dysuria or hematuria. MUSCULOSKELETAL: Unremarkable. SKIN: Unremarkable. ENDOCRINE: Unremarkable. PSYCHIATRIC: Unremarkable. NEUROLOGY: Unremarkable. ENT/VISION: Unremarkable. CONSTITUTIONAL: No recent weight loss. No fever, chills, night sweats. PHYSICAL EXAMINATION: He appears comfortable. No apparent distress. VITAL SIGNS: Stable. Blood pressure is 167/55, pulse rate 64, temperature 98.2. HEENT examination unremarkable. Conjunctivae pink. Sclerae anicteric. Oral cavity no lesions. NECK: No JVD or lymph node enlargement. CHEST: Clear to auscultation. HEART: Regular rate and rhythm. ABDOMEN: Soft. Bowel sounds are positive. No organomegaly. EXTREMITIES: No pedal edema. SKIN: No rashes. NEUROLOGIC: Alert and oriented x3. No focal deficits. LABS: Labs from today show WBC 7, hemoglobin 6.8, platelets 314. PT and INR normal. BUN 36, creatinine 1.67. Stool occult blood was positive. IMPRESSION: This is a patient who presented to the hospital with black tarry stools of 2 days' duration and severe symptomatic anemia with a hemoglobin of 6.8 g/dL requiring one unit of blood transfusion. He has been feeling weak and tired for the last 3 months. He has been on Xarelto for 4 years. Last dose was yesterday morning at 9 a.m. Most likely we are dealing with an upper GI source of bleeding. His last colonoscopy was 9 years ago, and according to the patient it was within normal limits. RECOMMENDATIONS: 1. Start him on clear liquid diet. 2. Continue with Protonix 40 mg daily. 3. Scheduled for an EGD tomorrow. I discussed with the patient risks, benefits and complications of the procedure and he is agreeable to it. 4. Monitor CBC on a daily basis. We will follow the patient closely during his hospital stay. Thank you for this consultation. MMODL / IJN: [id number] /
[2018-12-02] MEDS ORDERED: NON-FORMULARY DRUG (Glycopyrrolate/Formoterol Fum [Bevespi Aerosphere Inhaler] 2 PUFF) INHALATION SCH (20:00)
[2018-12-02] MEDS: ATORVASTATIN 20 MG TAB PO SCH (21:49)
[2018-12-03] MEDS: CARVEDILOL 6.25 MG TAB PO SCH ×2 (07:29→18:00)
[2018-12-03] MEDS: SODIUM CHLORIDE 0.9% 1,000 ML IV SCH ×2 (07:49→13:20)
[2018-12-03] MEDS ORDERED: IV FLUID CONTINUATION 1,000 ML IV ONE (08:45)
[2018-12-03] MEDS ORDERED: PROPOFOL 10 MG/ML 20 ML VIAL IV ONE (08:47)
[2018-12-03] MEDS ORDERED: LIDOCAINE 1% INJ 10MG/ML (20 ML MDV) ONE (08:47)
[2018-12-03] MEDS ORDERED: PANTOPRAZOLE 40 MG/10 ML VIAL IVP SCH (09:00)
--- NOTE | 2018-12-03 09:17 | P.PCN ---
Date of Procedure: 12/03/18 Description of Procedure: BRIEF HISTORY: 88-year-old male with history significant for hypertension, hyperlipidemia and coronary disease who presented to the emergency department due to complaints of severe anemia. At that time he was reporting feeling weak and tired for the past 3 months and was seen by his PCP with lab work done and the patient subsequently told to proceed to the emergency department for evaluation of severe anemia hemoglobin on presentation was 6.8 with Hemoccult positive stool. He was given 1 unit of PRBCs. He does report some dark stool prior to presentation but denies any abdominal pain, nausea or vomiting. He is on Xarelto for treatment of atrial fibrillation. No prior history of peptic ulcer disease. He does occasionally take Motrin therapy. PROCEDURE PERFORMED: Esophagogastroduodenoscopy with biopsy. PREOPERATIVE DIAGNOSIS: Melena, anemia of acute blood loss. ESTIMATED BLOOD LOSS: Minimal. IV sedation per anesthesia. PROCEDURE: After informed consent was obtained, the patient was brought into the endoscopy unit. IV sedation was administered by Anesthesia under continuous monitoring. Initially the Olympus GIF-190 video endoscope was inserted into the mouth. Esophagus intubated without any difficulty. It was gradually advanced into the stomach and duodenum and carefully examined. The bulb and the second part of the duodenum were significant for mild erythema in the bulb and duodenal sweep with a superficial nonbleeding ulcer and a normal second portion of the duodenum. Biopsies of the duodenum were taken. The scope at this time was withdrawn to the stomach, adequately insufflated with air, and upon careful examination, mucosa of the antrum, body, cardia and the fundus appeared grossly normal except for mild scattered erythema in the antrum and body with some superficial erosions in the antrum suggestive of moderate gastritis with biopsies of the antrum and body taken. The scope was then withdrawn into the esophagus. The GE junction was located at 41 cm from the incisors, with a 3 cm hiatal hernia noted. The esophagus appeared normal. There were no erosions or ulcerations seen and the patient tolerated the procedure well. IMPRESSION: 1. Duodenitis and superficial nonbleeding duodenal bulb ulcer, with duodenal biopsies taken. 2. Moderate gastritis antrum body, biopsied. 3. Small hiatal hernia. RECOMMENDATIONS: The findings of this examination were discussed with the patient. Okay for full liquid diet, advance to low fiber, low residual for dinner if stable. Would hold Xarelto today, and can restart tomorrow if patient remains hemodynamically stable with no further signs or symptoms of GI bleeding. Await pathology from biopsies. Continue Protonix 40 mg PO BID. Continue to monitor hemoglobin and hematocrit and transfuse as needed.
[2018-12-03] MEDS: LISINOPRIL 2.5 MG TAB PO SCH (09:40)
[2018-12-03] MEDS: FUROSEMIDE 40 MG TAB PO SCH (09:40)
[2018-12-03] MEDS: POTASSIUM CHLORIDE ER 20 MEQ TAB.ER PO SCH (09:46)
[2018-12-03] MEDS: PANTOPRAZOLE 40 MG TABLET PO SCH ×2 (10:00→18:00)
[2018-12-03 11:05] LABS: Anisocytosis Slight; Basophils # (A) 0.1 k/uL (0-0.2); Basophils % (A) 1 %; Eosinophils # (A) 0.4 k/uL (0-0.7); Eosinophils % (A) 5 %; HCT 25.5 % (39.0-53.0); HGB 7.7 gm/dL (13.0-17.5); Hypochromasia Marked; Lymphocytes # (A) 1.1 k/uL (1.0-4.8); Lymphocytes % (A) 16 %; MCH 24.1 pg (25.0-35.0); MCHC 30.3 g/dL (31.0-37.0); MCV 79.5 fL (80.0-100.0); Mean Platelet Volume 6.8; Microcytosis Slight; Monocytes # (A) 0.4 k/uL (0-1.0); Monocytes % (A) 6 %; Neutrophils # (A) 4.9 k/uL (1.3-7.7); Neutrophils % (A) 70 %; Platelet Count 302 k/uL (150-450); Poikilocytosis Moderate; RBC 3.21 m/uL (4.30-5.90); RDW 17.7 % (11.5-15.5)
[2018-12-03 11:44] VITALS: RESP 18
--- NOTE | 2018-12-03 16:43 | P.HPIM ---
History of Present Illness H&P Date: 12/03/18 Chief Complaint: Tired History of presenting complaint: This is a very pleasant 88-year-old patient who follows with Dr. hansen out of [place]. Chronic stable medical conditions include coronary artery disease being followed by Dr. Ramirez from [facility], hyperlipidemia, peripheral arterial disease, osteoarthritis, COPD. Patient has been feeling weak and tired. Dizzy. Gets a bit foggy when he gets up. Patient had his blood drawn and he was told he was anemic and sent him for the same. Hemoglobin was 6.8 in the ER. Did get a unit of blood. Patient lives by himself. Does use a cane. Patient is to sounds are present with him. No chest pain no palpitation. Patient has noticed some dark stools. Review of systems: GEN.: Tired dizzy EYES: None HEENT: Decreased hearing NECK: None RESPIRATORY: None CARDIOVASCULAR: None GASTROINTESTINAL: No abdominal pain GENITOURINARY: None MUSCULOSKELETAL: Pain in the joints LYMPHATICS: None HEMATOLOGICAL: None PSYCHIATRY: Slightly forgetful NEUROLOGICAL: Uses a cane Past medical history: Coronary artery disease, hyperlipidemia, peripheral arterial disease, osteoarthritis, COPD Social history: Does smoke in the past. Alcohol rarely. Retired. Lives by himself. Family history: Reviewed, noncontributory to presentation Physical examination: VITAL SIGNS: 97.6, 18, 160/69, 96% room air GENERAL: BMI 23.2, sitting up, awake. EYES: Pupils equal. Conjunctiva palel. HEENT: External appearance of nose and ears normal, oral cavity grossly normal, decreased hearing. NECK: JVD not raised; masses not palpable. HEART: First and second heart sounds are normal; no edema. LUNGS: Respiratory rate normal; decreased breath sounds. ABDOMEN: Soft, nontender, liver spleen not palpable, no masses palpable. PSYCH: Alert and oriented x3; mood and affect normal. NEUROLOGICAL: Cranial nerves grossly intact; no facial asymmetry, power and sensation grossly intact. LYMPHATICS: No lymph nodes palpable in the axilla and neck MUSCULOSKELETAL: Evidence of OA in the hands Investigations: White count 7 hemoglobin 6.8 potassium 4.3 bun 36 creatinine 1.67 Bun 26 crit and 1.50 in May 2018 Stool occult positive Assessment: -Acute GI bleed, in a patient who takes Xarelto and aspirin -Acute symptomatic anemia from GI bleed patient did get a unit of blood -Coronary artery disease with history of angioplasty and stent -Hyperlipidemia -Peripheral arterial disease -Primary osteoarthritis -COPD in an ex-smoker Plan: Care was discussed the patient and the soles of the bedside. GI was consulted. For a endoscopy. Other home medications resumed. Aspirin Xarelto to be held for right now. Repeat CBC in the morning. Patient did get a unit of blood. Past Medical History Past Medical History: Coronary Artery Disease (CAD), Hyperlipidemia Additional Past Medical History / Comment(s): left leg swelling Last Myocardial Infarction Date:: 2015 History of Any Multi-Drug Resistant Organisms: None Reported Past Surgical History: Heart Catheterization, Hernia Repair Additional Past Surgical History / Comment(s): left leg bypass, right and left hernia, skin CA removal on RT face/neck Past Anesthesia/Blood Transfusion Reactions: No Reported Reaction Past Psychological History: No Psychological Hx Reported Smoking Status: Former smoker Past Alcohol Use History: None Reported Past Drug Use History: None Reported - Past Family History Mother Family Medical History: No Reported History Additional Family Medical History / Comment(s): Mother at the age of 78yrs. She did not have access to health care much. Father Family Medical History: No Reported History Additional Family Medical History / Comment(s): Father at the age of 86yrs. He did not have much access to health care. Medications and Allergies Home Medications Medication Instructions Recorded Confirmed Type Aspirin EC [Ecotrin Low Dose] 81 mg PO DAILY 06/18/18 12/02/18 History Atorvastatin [Lipitor] 20 mg PO HS 06/18/18 12/02/18 History Carvedilol [Coreg] 6.25 mg PO BID 06/18/18 12/02/18 History Glycopyrrolate/Formoterol Fum 2 puff INHALATION RT-BID 06/18/18 12/02/18 History [Bevespi Aerosphere Inhaler] Rivaroxaban [Xarelto] 20 mg PO DAILY 06/18/18 12/02/18 History Furosemide [Lasix] 40 mg PO DAILY 12/02/18 12/02/18 History Lisinopril [Zestril] 2.5 mg PO DAILY 12/02/18 12/02/18 History Potassium Chloride ER [K-Dur 20] 20 meq PO DAILY 12/02/18 12/02/18 History Allergies Allergy/AdvReac Type Severity Reaction Status Date / Time No Known Allergies Allergy Verified 12/02/18 08:49 Physical Exam Vitals: Vital Signs Temp Pulse Pulse Resp BP BP Pulse Ox 12/03/18 09:52 97.7 F 64 16 143/68 95 12/03/18 07:30 65 18 200/70 12/03/18 04:00 98.1 F 82 18 153/87 98 12/03/18 00:00 98.2 F 78 18 135/73 95 12/02/18 23:13 69 18 12/02/18 20:00 97.8 F 69 16 146/67 96 12/02/18 15:00 97.5 F L 63 20 187/70 96 12/02/18 14:34 97.6 F 82 18 174/89 98 12/02/18 13:54 97.8 F 60 18 189/91 12/02/18 13:16 98.1 F 57 L 18 185/61 98 12/02/18 12:48 97.6 F 79 18 177/63 98 12/02/18 12:18 98.2 F 64 18 167/55 95 12/02/18 12:08 97.8 F 52 L 16 180/59 97 12/02/18 11:53 97.6 F 66 18 164/69 96 Intake and Output 12/02/18 12/03/18 12/03/18 22:59 06:59 14:59 Intake Total 300 Output Total 300 Balance -300 300 Intake: IV 300 Output: Urine 300 Other: Voiding Method Urinal Urinal Urinal # Voids 1 # Bowel Movements 1 Weight 73.3 kg Results CBC & Chem 7: 12/03/18 10:24 12/02/18 08:48 Labs: Abnormal Lab Results - Last 24 Hours (Table) 12/02/18 Range/Units 08:45 Crossmatch See Detail Thrombosis Risk Factor Assmnt - Choose All That Apply Any of the Below Risk Factors Present?: Yes Each Factor Represents 1 point: Abnormal pulmonary function (COPD) Other Risk Factors: Yes Each Risk Factor Represents 2 Points: Malignancy Each Risk Factor Represents 3 Points: Age 75 years or older Other congenital or acquired thrombophilia - If yes, enter type in comment: No Thrombosis Risk Factor Assessment Total Risk Factor Score: 6 Thrombosis Risk Factor Assessment Level: High Risk
[2018-12-03] MEDS ORDERED: PANTOPRAZOLE 40 MG TABLET PO SCH (17:30)
[2018-12-03] MEDS: ATORVASTATIN 20 MG TAB PO SCH (19:57)
[2018-12-04] MEDS: SODIUM CHLORIDE 0.9% 1,000 ML IV SCH (01:53)
[2018-12-04] MEDS: POTASSIUM CHLORIDE ER 20 MEQ TAB.ER PO SCH (08:10)
[2018-12-04] MEDS: FUROSEMIDE 40 MG TAB PO SCH (08:10)
[2018-12-04] MEDS: PANTOPRAZOLE 40 MG TABLET PO SCH (08:10)
[2018-12-04] MEDS: CARVEDILOL 6.25 MG TAB PO SCH (08:10)
[2018-12-04] MEDS: LISINOPRIL 2.5 MG TAB PO SCH (08:10)
[2018-12-04 11:53] VITALS: BP 163/69; PULSE 63; TEMP 98.3
[2018-12-04 14:44] LABS: Anisocytosis Slight; Basophils % (A) 1 %; Eosinophils # (A) 0.3 k/uL (0-0.7); Eosinophils % (A) 6 %; HGB 7.5 gm/dL (13.0-17.5); Hypochromasia Marked; Lymphocytes # (A) 1.1 k/uL (1.0-4.8); Lymphocytes % (A) 19 %; MCH 23.4 pg (25.0-35.0); MCHC 30.1 g/dL (31.0-37.0); MCV 77.8 fL (80.0-100.0); Mean Platelet Volume 6.8; Microcytosis Slight; Monocytes # (A) 0.3 k/uL (0-1.0); Monocytes % (A) 6 %; Neutrophils # (A) 3.7 k/uL (1.3-7.7); Neutrophils % (A) 66 %; Platelet Count 290 k/uL (150-450); Poikilocytosis Slight; RBC 3.21 m/uL (4.30-5.90); RDW 18.2 % (11.5-15.5); WBC 5.7 k/uL (3.8-10.6)
--- NOTE | 2018-12-04 23:05 | P.DS ---
Providers Date of admission: 12/02/18 10:47 Expected date of discharge: 12/04/18 Attending physician: Dilan Goldstein Consults: 12/02/18 10:17 Consult Physician Routine Consulting Provider: Yolanda Khan Consult Reason/Comments: gi bleed, anemia Do you want consulting provider notified?: Yes, Notify in am Primary care physician: Will Nayak [facility] Course: Chief Complaint: Tired History of presenting complaint: This is a very pleasant 88-year-old patient who follows with Dr. nayak out of [place]. Chronic stable medical conditions include coronary artery disease being followed by Dr. Ramirez from [facility], hyperlipidemia, peripheral arterial disease, osteoarthritis, COPD. Patient has been feeling weak and tired. Dizzy. Gets a bit foggy when he gets up. Patient had his blood drawn and he was told he was anemic and sent him for the same. Hemoglobin was 6.8 in the ER. Did get a unit of blood. Patient lives by himself. Does use a cane. Patient sons are present with him. No chest pain no palpitation. Patient has noticed some dark stools. Patient did get 1 unit of blood EGD revealed-duodenitis and superficial nonbleeding duodenal bulb ulcer, moderate gastritis. Per GI Xarelto to be resumed. Patient had a brown stool today. Care was discussed length with the patient's son. Discussed when to return. Pros and cons of anticoagulation and respiratory effort were discussed. Hemoglobin today 7.5. Patient much improved. Symptomatically. Discussion and discharge planning more than 35 minutes Consultation: Dr. Rendon/Dr. Newman from GI Physical examination: VITAL SIGNS: 98.2, 75, 16, 163/6998% room air GENERAL: Sitting in the edge, comfortable. EYES: Pupils equal. Conjunctiva palel. HEENT: External appearance of nose and ears normal, oral cavity grossly normal, decreased hearing. NECK: JVD not raised; masses not palpable. HEART: First and second heart sounds are normal; no edema. LUNGS: Respiratory rate normal; decreased breath sounds. ABDOMEN: Soft, nontender, liver spleen not palpable, no masses palpable. PSYCH: Alert and oriented x3; mood and affect normal. MUSCULOSKELETAL: Evidence of OA in the hands Investigations: Hemoglobin 7.5 Previous testing White count 7 hemoglobin 6.8 potassium 4.3 bun 36 creatinine 1.67 Bun 26 crit and 1.50 in May 2018 Stool occult positive Discharge diagnosis: -Acute GI bleed, in a patient who takes Xarelto and aspirin from duodenal bulb ulcer -Duodenitis and gastritis -Acute symptomatic anemia from GI bleed patient did get a unit of blood -Coronary artery disease with history of angioplasty and stent -Hyperlipidemia -Peripheral arterial disease -Primary osteoarthritis -COPD in an ex-smoker Disposition: Home Patient Condition at Discharge: Stable Plan - Discharge Summary Discharge Rx Participant: No New Discharge Prescriptions: New Pantoprazole [Protonix] 40 mg PO AC-BID #60 tablet. Continue Glycopyrrolate/Formoterol Fum [Bevespi Aerosphere Inhaler] 2 puff INHALATION RT-BID Rivaroxaban [Xarelto] 20 mg PO DAILY Atorvastatin [Lipitor] 20 mg PO HS Aspirin EC [Ecotrin Low Dose] 81 mg PO DAILY Carvedilol [Coreg] 6.25 mg PO BID Potassium Chloride ER [K-Dur 20] 20 meq PO DAILY Lisinopril [Zestril] 2.5 mg PO DAILY Furosemide [Lasix] 40 mg PO DAILY Discharge Medication List Aspirin EC [Ecotrin Low Dose] 81 mg PO DAILY 06/18/18 [History] Atorvastatin [Lipitor] 20 mg PO HS 06/18/18 [History] Carvedilol [Coreg] 6.25 mg PO BID 06/18/18 [History] Glycopyrrolate/Formoterol Fum [Bevespi Aerosphere Inhaler] 2 puff INHALATION RT- BID 06/18/18 [History] Rivaroxaban [Xarelto] 20 mg PO DAILY 06/18/18 [History] Furosemide [Lasix] 40 mg PO DAILY 12/02/18 [History] Lisinopril [Zestril] 2.5 mg PO DAILY 12/02/18 [History] Potassium Chloride ER [K-Dur 20] 20 meq PO DAILY 12/02/18 [History] Pantoprazole [Protonix] 40 mg PO AC-BID #60 tablet. 12/04/18 [Rx] Follow up Appointment(s)/Referral(s): [facility], [NON[facility]STAFF] - Will Nayak MD [Primary Care Provider] - 12/11/18 11:30 am (Friday) Rodriguez Castano MD [STAFF PHYSICIAN] - 12/17/18 3:30 pm () Ambulatory/Diagnostic Orders: Complete Blood Count w/diff [LAB.AMB] Time Frame: 1 Week, Location: None Selected Patient Instructions/Handouts: Peptic Ulcer (DC), Anemia (DC) Discharge Disposition: HOME WITH HOME HEALTH SERVICES
== END 2018-12-04 16:33 | disposition home health service (06) | DRG 378 ==
LOC: EC 08:34 → 3SCARD 10:47
PROVIDERS: ADMIT Hospitalist; ATTEND Hospitalist
PROC: 0DB78ZX Excision of Stomach, Pylorus, Via Natural or Artificial Opening Endoscopic, Diagnostic (ICD-10-PCS; 2018-12-03)
PROC: 0DB98ZX Excision of Duodenum, Via Natural or Artificial Opening Endoscopic, Diagnostic (ICD-10-PCS; principal; 2018-12-03 07:45)
DX: K26.4 Chronic or unspecified duodenal ulcer with hemorrhage (principal); D62 Acute posthemorrhagic anemia; E78.5 Hyperlipidemia, unspecified; I10 Essential (primary) hypertension; I25.10 Atherosclerotic heart disease of native coronary artery without angina pectoris; I25.2 Old myocardial infarction; I48.91 Unspecified atrial fibrillation; I73.9 Peripheral vascular disease, unspecified; J44.9 Chronic obstructive pulmonary disease, unspecified; K29.70 Gastritis, unspecified, without bleeding; K29.80 Duodenitis without bleeding; K44.9 Diaphragmatic hernia without obstruction or gangrene; M19.90 Unspecified osteoarthritis, unspecified site; Z79.01 Long term (current) use of anticoagulants; Z79.82 Long term (current) use of aspirin; Z79.899 Other long term (current) drug therapy; Z87.891 Personal history of nicotine dependence; Z85.828 Personal history of other malignant neoplasm of skin; Z95.5 Presence of coronary angioplasty implant and graft
CPT/HCPCS: 36415; 43239; 80053; 82272; 85025; 85610; 85730; 86850; 86900; 86901; 86920; 88305; 88342; 96361; 96374; 99284

== ENCOUNTER → 2018-12-11 | Outpatient (CLI) | payer MEDICARE, OTHER ==
--- NOTE | 2018-12-11 12:10 | US ---
EXAMINATION TYPE: US carotid duplex BILAT DATE OF EXAM: 12/11/2018 COMPARISON: US CLINICAL HISTORY: H53.453 other localized visual field defect,bilate. EXAM MEASUREMENTS: RIGHT: Peak Systolic Velocity (PSV) cm/sec ----- Right CCA: 75.6 ----- Right ICA: 104.0 ----- Right ECA: 83.4 ICA/CCA ratio: 1.4 RIGHT: End Diastole cm/sec ----- Right CCA: 18.0 ----- Right ICA: 27.0 ----- Right ECA: 10.1 LEFT: Peak Systolic Velocity (PSV) cm/sec ----- Left CCA: 70.3 ----- Left ICA: 94.0 ----- Left ECA: 159.4 ICA/CCA ratio: 1.3 LEFT: End Diastole cm/sec ----- Left CCA: 12.7 ----- Left ICA: 33.1 ----- Left ECA: 0.0 VERTEBRALS (direction of flow): Right Vertebral: Antegrade Left Vertebral: Antegrade Rhythm: Normal No significant stenosis seen. No elevated velocities. Bilateral shadowing plaque. IMPRESSION: Mild degree of grayscale atheromatous plaquing with no sonographically evident hemodynam ically significant stenosis within either visualized carotid arterial system. Criteria for Assigning % of Stenosis / Diameter reduction (Estimation based on the indirect measurements of the internal carotid artery velocities (ICA PSV). 1. Normal (no stenosis)=ICA PSV < 125 cm/s: ratio < 2.0: ICA EDV<40 cm/s. 2. Less than 50% stenosis=ICA PSV < 125 cm/s: ratio < 2.0: ICA EDV<40 cm/s. 3. 50 to 69% stenosis=ICA PSV of 125 to 230 cm/s: ration 2.0 ? 4.0: ICA EDV 40-100 cm/s. 4. Greater than 70% stenosis to near occlusion= ICA PSV > 230 cm/s: ratio > 4.0: ICA EDV > 100 cm/s. 5. Near occlusion= ICA PSV velocities may be low or undetectable: variable ratio and ICA EDV. 6. Total occlusion=unable to detect flow.
== END | disposition home or self-care (01) ==
LOC: RADUSWWP 11:41
PROVIDERS: ATTEND Family Medicine
DX: I65.23 Occlusion and stenosis of bilateral carotid arteries (principal)
CPT/HCPCS: 93880